=== PATIENT | male | born 1935 | race Hispanic/Latino ===

== ENCOUNTER 2018-08-24 13:23 | Outpatient (CLI) | payer MEDICARE, MEDICAID | END 2018-08-24 13:24 | disposition home or self-care (01) | LOC: RAD 13:23 ==

== ENCOUNTER 2018-10-25 14:17 | Outpatient (CLI) | payer MEDICARE, MEDICAID | END 2018-10-25 14:18 | disposition home or self-care (01) | LOC: RAD 14:18 ==

== ENCOUNTER 2018-11-30 09:21 | Outpatient (CLI) | payer MEDICARE, MEDICAID | END 2018-11-30 09:22 | disposition home or self-care (01) | LOC: RAD 09:21 | DX: I82.401 Acute embolism and thrombosis of unspecified deep veins of right lower extremity (principal); I87.333 Chronic venous hypertension (idiopathic) with ulcer and inflammation of bilateral lower extremity ==